=== PATIENT | male | born 1990 | race Two or more races ===

== ENCOUNTER 2018-10-01 21:27 | Emergency (ER) | payer BC, OTHER ==
[~2018-10-01] VITALS: Ht 172.7 cm; Wt 104.3 kg
--- NOTE | 2018-10-01 21:57 | PHYS DOC ---
Past Medical History Past Medical History: No Pertinent History Past Surgical History: No Surgical History Alcohol Use: None Drug Use: None Adult General Chief Complaint Chief Complaint: CHEST PAIN [facility] HPI Patient is a 27 year old male presents for evaluation of brief episode of left- sided chest pain that occurred earlier at home. He states he had a sharp pain in his chest, felt like he couldn't catch his breath, "spit up something white from my mouth, and then I started hitting my head on the mirror intentionally". Patient reports the episode was very brief, he currently does not have any pain in his chest. He has not been treated for anxiety or panic disorder in the past. Patient states he did not lose consciousness, does not have headache, dizziness or vision changes from hitting his head. Review of Systems Review of Systems Constitutional: Denies fever or chills [] Eyes: Denies change in visual acuity, redness, or eye pain [] HENT: Denies nasal congestion or sore throat [] Respiratory: Denies cough or shortness of breath [] Cardiovascular: No additional information not addressed in HPI [] GI: Denies abdominal pain, nausea, vomiting, bloody stools or diarrhea [] : Denies dysuria or hematuria [] Musculoskeletal: Denies back pain or joint pain [] Integument: Denies rash or skin lesions [] Neurologic: Denies headache, focal weakness or sensory changes [] Endocrine: Denies polyuria or polydipsia [] All other systems were reviewed and found to be within normal limits, except as documented in this note. Allergies Allergies Allergies Coded Allergies Type Severity Reaction Last Updated Verified No Known Drug Allergies 11/22/14 No Physical Exam Physical Exam Constitutional: Well developed, well nourished, no acute distress, non-toxic appearance. [] HENT: Normocephalic, atraumatic, bilateral external ears normal, oropharynx moist, no oral exudates, nose normal. [] Eyes: PERRLA, EOMI, conjunctiva normal, no discharge. [] Neck: Normal range of motion, no tenderness, supple, no stridor. [] Cardiovascular:Heart rate regular rhythm, no murmur [] Lungs & Thorax: Bilateral breath sounds clear to auscultation [] Abdomen: Bowel sounds normal, soft, no tenderness, no masses, no pulsatile masses. [] Skin: Warm, dry, no erythema, no rash. [] Back: No tenderness, no CVA tenderness. [] Extremities: No tenderness, no cyanosis, no clubbing, ROM intact, no edema. [] Neurologic: Alert and oriented X 3, normal motor function, normal sensory function, no focal deficits noted. [] Psychologic: Affect normal, judgement normal, mood normal. [] Current Patient Data Vital Signs Vital Signs Date Time Temp Pulse Resp B/P (MAP) Pulse Ox O2 Delivery O2 Flow Rate FiO2 10/01/18 21:29 98.3 90 18 141/86 (104) 99 Room Air 98.3 Lab Values Laboratory Tests Test 10/01/18 21:47 POC Troponin I 0.00 ng/ml (<0.08) EKG EKG [EKG read by emergency room physician rate 92 interpretation sinus rhythm, no STEMI] Radiology/Procedures Radiology/Procedures CXR NEGATIVE[] Course & Med Decision Making Course & Med Decision Making Pertinent Labs and Imaging studies reviewed. (See chart for details) [ISTAT TROPONIN NEGATIVE, EKG normal sinus rhythm, patient is pain-free prior to arrival in emergency room and remained pain-free during his stay. Recommend follow-up with primary care doctor.] Dragon Disclaimer Dragon Disclaimer This electronic medical record was generated, in whole or in part, using a voice recognition dictation system. Departure Departure Impression: Primary Impression: Atypical chest pain Disposition: HOME, SELF-CARE Condition: STABLE Referrals: NO PCP (PCP) Patient Instructions: Chest Pain (Nonspecific), [id number] LINUS ANDERSEN APRN Oct 01, 2018 21:57
[2018-10-01 22:30] VITALS: BP 137/66
--- NOTE | 2018-10-02 00:24 | RAD ---
PROCEDURE: CHEST PA LATERAL CLINICAL INDICATION: CHEST PAIN TODAY COMPARISON: None FINDINGS: No pneumothorax identified. Cardiac and mediastinal contours unremarkable. No pulmonary consolidation or acute airspace disease. No acute osseous abnormalities identified. IMPRESSION: No pulmonary consolidation or acute airspace disease. Electronically signed by: Savage Hanson DO (10/02/2018 12:21 AM) [facility]
--- NOTE | 2018-10-02 08:04 | EKG ---
[facility] [address] [place] [address] Test Date: 2018-10-01 Test Time: 21:33:29 Pat Name: NHI CORONADO Department: Room: Gender: M Inspector Tool: : 1990 Requested By: LINUS ANDERSEN Order Number: [id number] Reading MD: Pancho Frye MD Measurements Intervals [place] Rate: 92 P: 51 [place]: 160 QRS: 49 QRSD: 104 T: 29 QT: 344 QTc: 430 Interpretive Statements SINUS RHYTHM Electronically Signed On 10-10-2018 9:33:17 CDT by Pancho Frye MD
== END 2018-10-01 23:04 | disposition home or self-care (01) ==
LOC: ER 21:27
DX: R07.89 Other chest pain (principal)
CPT/HCPCS: 71046; 84484; 93005; 99283